=== PATIENT | female | born 1975 | race Caucasian/White ===

== ENCOUNTER → 2016-05-11 | Outpatient (CLI) | payer OTHER ==
[~2016-05-11] MED LIST: CYMBALTA60 MG PO; FLEXERIL-DPS10 MG PO; HYDROCODONE 10M10 MG PO; LOVENOX DPS150 MG/ML SQ; XANAX DPS0.25 MG PO; ZOCOR DPS20 MG PO
== END | disposition home or self-care (01) ==
LOC: RAD.S 15:16
DX: M79.662 Pain in left lower leg (principal); D66 Hereditary factor VIII deficiency; I10 Essential (primary) hypertension; I82.432 Acute embolism and thrombosis of left popliteal vein

== ENCOUNTER 2016-05-18 12:43 | Emergency (ER) | payer OTHER ==
--- NOTE | 2016-05-30 07:41 | ER ---
ADMIT: 05/18/2016 RM/LOC: ER [facility] MR#: [id number] [place], [place] [id number] [place] [address] Emergency Room Report SEX: F AGE: 40 : 1975 DATE: 05/18/2016 ADDENDUM: This patient has a known left DVT. She states that today she had increased pain in the left leg and she is wondering if that blood clot has gotten bigger. She says she has a lot of anxiety as well, and she is not sure if her anxiety is making it worse. She does not have any shortness of breath or chest pain. On physical exam, her heart rate was 10, but she was quite anxious. 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 Ultrasound was unchanged from when they did it last week. She was given Xanax and when I went to re-evaluate her, she was feeling a lot better from her anxiety as well. We will have her follow up with her primary. Continue with the Lovenox that she is doing. DIAGNOSES: 1. Left leg pain. 2. Left known deep venous thrombosis. ERICH Vazqeuz / Oren Lorenzo MD / vinital JOB #: [id number] CC: Oren Lorenzo MD, Attending Physician Jesse Alvarado MD, Family Physician
== END 2016-05-18 14:15 | disposition home or self-care (01) ==
LOC: ER 12:43
DX: I82.402 Acute embolism and thrombosis of unspecified deep veins of left lower extremity (principal); Z88.1 Allergy status to other antibiotic agents